=== PATIENT | female | born 1960 | race Caucasian/White ===

== ENCOUNTER 2017-07-28 14:55 | Outpatient (CLI) | payer OTHER | END 2017-07-28 14:56 | disposition home or self-care (01) | LOC: DTY/OP 14:55 | PROVIDERS: ATTEND Specialist | DX: Z01.818 Encounter for other preprocedural examination (principal); E66.01 Morbid (severe) obesity due to excess calories | CPT/HCPCS: 97802 ==

== ENCOUNTER 2017-09-22 16:22 | Outpatient (CLI) | payer BC | END 2017-09-22 16:23 | disposition home or self-care (01) | LOC: LABBT 16:22 | PROVIDERS: ATTEND Specialist | DX: Z01.818 Encounter for other preprocedural examination (principal); E66.01 Morbid (severe) obesity due to excess calories | CPT/HCPCS: 93005; 93010 ==

== ENCOUNTER 2017-09-22 17:00 | Inpatient (IN) | payer BC ==
--- NOTE | 2017-09-23 05:51 | ADD-HP ---
ADDENDUM To the dictation 08/17/2017, #[id number]. HISTORY OF PRESENT ILLNESS: A 57-year-old female presents for evaluation for a bariatric surgery. S he has undergone laparoscopic Nilesh fundoplication in 12/[address] Briones. This was performed over a bougie. She had an upper endoscopy by Dr. David that revealed mild esophagitis post-Nis sen changes and no other abnormalities. The patient has seen psychology and felt to be a good candid ate for bariatric surgery. She has seen our dietitian and office service coordinator reviewing the periop erative eating changes associated with laparoscopic sleeve gastrectomy. She is well aware of this an d aware of the importance of following this regimen to minimize risk of complications. She is well a barton of the risk of operation, which have been well outlined in previous dictations. She has no furt her questions. She has signed the consents. We have reviewed them and she has reviewed them at home and has no further questions. Plan is to take down the Nilesh fundoplication and perform a laparosc opic sleeve gastrectomy. The patient has followed our regimen and has been successful with periopera tive weight loss. When I initially saw her, she was 264 pounds, BMI of 48 and today 247 pounds, BMI of 45. She has seen Dr. Theodore Wright and had a normal myocardial perfusion scan, normal ejection fracti on and is felt to be a good candidate for bariatric surgery without significant cardiac risk. She un derstands would be successful she will need to follow the postoperative recommendations and followup and support groups and she is willing to do that. Comorbidities include hypertension, insomnia, slee p apnea and arthralgias. She has a history of depression followed by psychiatry in the past. PAST SURGICAL HISTORY: She has had a right total knee replacement in 10/2014; hysterectomy; bilatera l salpingo-oophorectomy for benign disease; right shoulder replacement; right carpal tunnel release; laparoscopic Nilesh fundoplication by Dr. Briones; colonoscopy at age 49, normal; esophagogastroduode noscopy recently without significant findings and right total shoulder replacement on 02/27/2013. ALLERGIES: PROCHLORPERAZINE and COMPAZINE. SOCIAL HISTORY: Tobacco one-half pack a day in the past and has quit smoking and does use Chantix. MEDICATIONS: Lexapro 40 mg a day, Lunesta 2 mg at bedtime, Lipitor 10 mg a day, Diovan 320/12.5 j carlos y, methylphenidate ER 36 mg twice a day, acyclovir 400 mg once a day, Chantix, Klor-Con 10 mg a day a nd Lasix 20 mg a day. PHYSICAL EXAMINATION: VITAL SIGNS: Weighs 247 pounds, blood pressure 119/69, pulse 95, temperature 93.2 degrees, height 5 foot 2 inches and a BMI of 45.2. HEENT: Unremarkable. LUNGS: Clear to auscultation. CARDIAC: Regular rate and rhythm without murmur or gallop. ABDOMEN: Soft and nontender. EXTREMITIES: Unremarkable. ASSESSMENT AND PLAN: 1. Morbid obesity with comorbidities of hypertension and sleep apnea. Well aware of the risk of rev isional bariatric surgery and consents. Understands the risk of leakage, bleeding and open operation . 2. History of tobacco abuse cessation, on Chantix. 3. Sleep apnea. 4. Hypertension. 5. Arthralgias.
--- NOTE | 2017-09-28 06:13 | HP ---
HISTORY OF PRESENT ILLNESS: The patient has attended our bariatric seminar. After hearing the baria tric options, she is interested in laparoscopic sleeve gastrectomy. She has tried different surgical weight loss without durable results. She has tried Weight Watchers, shakes and decreased carbs, Nut risystem, losing 20 to 40 pounds without durable results. She wants to lose weight for long-term res ults, health reasons, and to increase her activity and interactions with her family. She wants to gifford ve a quality of life in the future. Comorbidities include hypertension, elevated cholesterol, sleep apnea for which she does not use a CPAP and had a sleep study in 2013 at [facility]. 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 She is currently smoking, decreased to 1 pack a day to on e half pack per day, using Chantix, plans to quit smoking in the near future. She is followed by [facility] physician in [place], Dr. Aylin Torres. She in 2008 had laparoscopic hiatal hernia repai r and fundoplication and had a followup endoscopy [address] Cancino and reports this as nor mal. She does not have any reflux symptoms at all. Of interest also was the patient had some leg swelling. She had a cardiac catheterization with Dr. Nicole Wright and this was reported as normal. This workup has undertaken because of lower extremity dennis a and some chest pressure symptoms, they were unexplained. The patient had negative cardiac stress t est beginning of this year, but she wanted to have a cardiac catheterization because of her symptoms. ALLERGIES: PROCHLORPERAZINE and COMPAZINE. TOBACCO: One half pack a day, decreased from 1 pack a day, using Chantix to quit smoking. ALCOHOL: Rarely. MEDICATIONS: Lexapro 40 mg a day, Lunesta 2 mg at bedtime, Lipitor 20 mg daily, Diovan (valsartan an d hydrochlorothiazide) 320/12.5 mg daily (taken p.r.n.), methylphenidate ER 36 mg twice a day, acyclo vir 400 mg once a day, Chantix, Klor-Con 10 mEq a day, and Lasix 20 mg a day. PAST MEDICAL HISTORY: Hypertension, insomnia, lower extremity edema, depression and anxiety. PAST SURGICAL HISTORY: Left shoulder surgery in 02/2013, right total knee replacement 10/2014, hyste rectomy and BSO for benign reasons, right shoulder replacement, right carpal tunnel, laparoscopic hia chidi hernia repair and fundoplication in 2008 in [place]. Colonoscopy at age 49 and had another one i 2014 that was normal. EGD by Dr. Cancino in [place] 4 to 5 years ago. History of acute renal tram lure secondary to NSAIDs and dehydration, did not require dialysis. History of diverticulitis, treat ed as an outpatient 08/2014. SOCIAL: The patient works at [employer]. PHYSICAL EXAMINATION: VITAL SIGNS: Height 5 feet 2 inches, weight 259 pounds, 47 BMI. HEAD, EARS, EYES, NOSE AND THROAT: Unremarkable. LUNGS: Clear to auscultation. CARDIAC: Regular rate and rhythm without murmur or gallop. ABDOMEN: Obese, soft, nontender. EXTREMITIES: Unremarkable. Edema of feet and ankles. NEUROLOGIC: Intact. LYMPHATICS: No lymphadenopathy neck groins, axilla. LABORATORY DATA: Chemistries on 06/02/2017, creatinine 0.8, GFR 84, and BUN 22. Liver function test s normal. ASSESSMENT AND PLAN: 1. Morbid obesity, 5 feet 2 inches, 259 pounds, 47 body mass index. She has multiple comorbidities as listed above. She is a good candidate for sleeve gastrectomy. I have discussed the risks and maynor efits of bariatric surgery, which were well explained in the seminar and then questions were answered . Risk of infection, bleeding, reoperation was explained, concept of revisional surgery due to her p revious laparoscopic hiatal hernia repair and Nilesh fundoplication discussed. She understands these issues increased risk for revisional surgery and we will proceed on with baseline bariatric labs, ps ychology visit, dietary visit related to a sleeve gastrectomy, perioperative dietary changes as well as visiting Dr. Cancino for upper endoscopy. 2. Sleep apnea, does not use a CPAP at home. 3. Hypertension, on one medication. 4. Elevated cholesterol. 5. History of gastroesophageal reflux disease treated successfully with antireflux surgery and repai r of hiatal hernia performed in [place].
--- NOTE | 2017-09-28 06:14 | ADD-HP ---
ADDENDUM TO HISTORY AND PHYSICAL DICTATED 07/14/2017 Jazzy Bean is a 57-year-old female who has undergone a laparoscopic Nilesh fundoplication 12/[address] Briones. This was performed over a bougie. Patient is scheduled to have an upper endoscopy by Dr. David in [place]. Patient has an appointment to see Laurita douglassitian today and has an appointment with psychologist. Bariatric labs have been obtained and are normal except for a slight ly low ferritin. I have discussed with patient the fact that since she has had a Nilesh fundoplicati on performed for severe gastroesophageal reflux disease and even though this resolved her reflux, the best surgical bariatric options is for laparoscopic Pam-en-Y gastric bypass. I have drawn her figu res explained using diagrams by this is the best operation. I have explained to her the risks of ope ration including infection, bleeding, reoperation, gastric pouch ischemia, anastomotic leakage, and u nderstand these issues, questions were answered. Anatomy reviewed and she is agreeable and wishes to proceed. I have discussed with her in addition, options to be referred to another bariatric surgeon for this revisional procedure, but she has declined when stayed here understands the risks and benef its. I have explained to her in detail how a leak would be managed if she would have one, including probable/possible use of a drain perioperatively that would stay in place for a week and a half. I nilsa camposhelly explained to her that if she would have a leak, she may need staining referred to invasive gastro enterologist in [place]. She understands these issues and in addition understands that if she would have leak, she would need a feeding jejunostomy tube. Hopefully, we can avoid these issues, but this was discussed and she wishes to proceed. She has had problems with lower extremity edema, refractor y diuretic. She has been evaluated from a cardiac standpoint by Dr. Theodore Wright and had cardiac stress test, catheterization, all of which are unremarkable. She has normal renal function and the normal liver function test. She does have sleep apnea. I have stressed her the importance of weight loss p rior to surgery and she will work with Laurita herrera to achieve that. She understands the risks a nd benefits as outlined.
[2017-09-28] MEDS ORDERED: Ketorolac Tromethamine 30 MG/ML VIAL ONE (06:27)
[2017-09-28] MEDS ORDERED: Scopolamine 1.5 mg/72 hour Patch ONE (06:27)
[2017-09-28] MEDS ORDERED: Heparin 5,000 UNITS/ML VIAL ONE (06:27)
[2017-09-28] MEDS ORDERED: Fentanyl 250 MCG/5 ML VIAL ONE (06:40)
[2017-09-28] MEDS ORDERED: cefOXitin 2 GM in Syringe 10 ML SLOW IVP SCH (06:45)
[2017-09-28] MEDS ORDERED: Bupivacaine/Epinephrine 0.25% 30 ML VIAL ONE (06:51)
[2017-09-28] MEDS ORDERED: Dextrose 5% in Water 1,000 ML IV PRN (10:45)
[2017-09-28] MEDS ORDERED: diphenhydrAMINE 50 MG/ML VIAL IVP PRN (10:45)
[2017-09-28] MEDS ORDERED: Hydrocodone-Acetamin 15 ML UDCUP PO PRN (10:45)
[2017-09-28] MEDS ORDERED: hydrALAZINE 20 MG/ML VIAL SLOW IVP PRN (10:45)
[2017-09-28] MEDS ORDERED: Dextrose 50% Abboject 50 ML SYRINGE SLOW IVP PRN (10:45)
[2017-09-28] MEDS ORDERED: Ondansetron HCl/PF 4 MG/2 ML Vial IVP PRN ×3 (10:45→17:41)
[2017-09-28] MEDS ORDERED: Promethazine HCl 25 MG/ML VIAL ONE (10:55)
[2017-09-28] MEDS ORDERED: Scopolamine 1.5 mg/72 hour Patch TD SCH (11:00)
[2017-09-28] MEDS ORDERED: Promethazine HCl 25 MG/ML VIAL IM PRN (11:05)
[2017-09-28] MEDS ORDERED: Promethazine HCl 25 MG/ML VIAL SLOW IVP PRN (11:05)
[2017-09-28] MEDS ORDERED: Fentanyl 100 MCG/2 ML VIAL ONE (11:21)
[2017-09-28] MEDS ORDERED: Morphine PF 1 MG/ML SYR IVP PRN (12:01)
--- NOTE | 2017-09-28 12:15 | OP ---
DATE OF PROCEDURE: 09/28/2017 PREOPERATIVE DIAGNOSES: History of GERD and Nilesh fundoplication, hypertension, arthralgias, obstru ctive sleep apnea, morbid obesity. Initial BMI 48, 264 pounds, preoperative weight 247 pounds, BMI 4 5. POSTOPERATIVE DIAGNOSES: History of GERD and Nilesh fundoplication, hypertension, arthralgias, obstr uctive sleep apnea, morbid obesity. Initial BMI 48, 264 pounds, preoperative weight 247 pounds, BMI 45. PROCEDURE: Laparoscopic reversal Nilesh fundoplication, lysis of adhesions, Pam-en-Y gastric bypass , 100 cm Pam limb antecolic. Mesenteric defect closed from jejunojejunostomy 25 mm EEA stapler, peyton cked under water and no leaks. SURGEON: Dr. Jhon Collazo ANESTHESIA: General. ESTIMATED BLOOD LOSS: 25 mL. BLOOD TRANSFUSED: None. PROCEDURE: The patient was taken to the operating room where under general anesthesia, abdomen was p repared with ChloraPrep, draped in routine fashion. The patient was properly padded. Wilson catheter was placed at the beginning, removed at the end. Supraumbilical incision made and pneumoperitoneum to 15 mmHg obtained with the Veress needle, replacing it with a 5 port and laparoscope inserted. All ports anesthetized with 0.25% Marcaine with epinephrine 60 mL volume used. Remainder of the ports p laced under laparoscopic visualization. Bilateral far lateral subcostal incision made and [address] a[address] Bilateral midclavicular upper abdominal incision was made right and left and on the right, the 12 mm and left 15 mm ports placed. Incision made subxiphoid left and Joe liver retractor inse rted, reflecting the left lobe of liver. The patient was placed in reverse Trendelenburg. Reversal Nilesh fundoplication was undertaken first. There were some adhesions to the liver were taken down c aredestiny, identifying the right and left crura. The Nilesh fundoplication previously performed in 12 11 was noted to not be attached anteriorly and to have slipped right lateral. These adhesions of the fundus to the right of the esophagus were taken down. A #32 [place] bougie had been placed under lap aroscopic visualization down the esophagus into the stomach to facilitate the identification the esop hagus and avoid any injuries. Careful dissection freed the fundus to the right of the esophagus free ing it from the crura and stomach and then pulling the fundus carefully with laparoscopic graspers to the left side for anatomic positioning. Careful evaluation revealed complete reduction of the Nisse n fundoplication. At this point, the patient was placed back in the supine position. The bougie was removed. 25 cm from ligament of Treitz, small bowel was divided with Endo white load stapler and an other fire of the mesentery, hemostasis gained with cautery and the Pam limb was devascularized appr oximately 5-7 cm. A 150 cm Pam limb was then measured and a jejunojejunostomy formed with a single fire of the 60 cm white load DAVID endostapler. The common defects closed with 2 fires of the white lo ad DAVID stapler transversely. Mesenteric defect closed with interrupted [id number] sutures of 3- 0 Vicryl. The Pam limb was then carefully measured from the jejunojejunostomy and placed in the lef t upper quadrant, placed patient back in reverse Trendelenburg. The omentum initially was adherent t o the lower pelvis and this was taken down with laparoscopic dissection using the LigaSure. The omen tessie was then split to the left of the falciform ligament up to the transverse colon and reflected cep halad for formation of the jejunojejunostomy. At this time placed dependently and attention turned t o the stomach. Approximately 4 cm from the esophagogastric junction on the lesser curvature side, th e gastrohepatic ligament taken down and the lesser sac entered. This was visualized laparoscopically . As all instrumentation was removed from the esophagus and stomach, a blue load 60 cm stapler was f ired transversely across the stomach for formation of the gastric pouch after careful measurements an d positioning. At this point, gastrotomy was made just inferior and laterally along the greater curv ature using the LigaSure opened and the 25 mm EEA staple passed up into the gastric pouch attached to a suture threaded through the band passer, guiding the band passer up into the gastric pouch and pos itioned the band passer against the gastric pouch just anterior to initially fired gastric staple tk e. Cautery was then used to make a small opening adjacent to the band passer, which was passed and s utured grasped pulling the anvil out of the gastric pouch. At completion, the gastrostomy was then c losed with a single fire blue load DAVID Endo 60 cm stapler. A good closure was obtained and redundant gastric tissue removed and submitted. At completion of the gastric pouch staple line was then perfo rmed with a blue load DAVID 60 cm endostapler dividing the stomach to the left of the angle of His avoi ding encroachment on the gastroesophageal junction. Once this staple line was complete, the Pam cerda b was identified. After the Pam limb was identified an opening made in the devascularized antimesen teric portion of the Pam limb and 25 mm EEA stapler placed through the 15 mm port site left upper qu adrant and proper position of the Pam limb performed in a well vascularized segment and the post-adv anced out of the antimesenteric border visualized laparoscopically. This was then mated to the anvil in the gastric pouch, which were then approximated in the torque fire range and then the stapler fir ed, loosened and complete donuts removed. The devascularized segment of the Pam limb to the patient 's left of the gastrojejunostomy was then excised using a white load DAVID stapler Endo 60 cm removing this and sending it to pathology. 2-0 Vicryl sutures seromuscular placed at the gastrojejunostomy, r ight posterolateral, left posterior lateral, left anterior lateral, taking tension off the gastrojeju nostomy. Gastrojejunostomy was then checked under water with air insufflation of the gastric pouch a dministered through the gastric tube placed under laparoscopic visualization through the gastrojejuno stomy into the jejunum. Occlusion of the Pam limb just beyond the gastrojejunostomy was achieved wi th intestinal clamp and there was no leak. This was decompressed, orogastric tube removed. A portio n of the gastric remnant then was excised. Even though it looked good, we excised this because of a thinned out area from the reduction of the Nilesh fundoplication resecting this up towards the well v ascularized segment using a single fire of the DAVID blue load stapler. This was removed and submitted to Pathology. Good hemostasis noted. Irrigant evacuated. Good hemostasis noted. 15 mm port site was thoroughly irrigated and then closed with a GraNee needle 0 Vicryl [id number]-fi-ykphk suture. Pneum operitoneum and irrigant evacuated. All instruments removed and all port sites thoroughly irrigated. Skin incisions approximated with interrupted subdermal 4-0 Monocryl and DermaGlue applied.
[2017-09-28] MEDS: D5 1/2 NS w/20 mEq KCL 1,000 ML IV SCH ×3 (12:35→20:32)
[2017-09-28] MEDS: Acetaminophen 1,000 MG in Premix Bag 1 BAG IVPB SCH ×3 (12:35→23:48)
[2017-09-28] MEDS: Ketorolac Tromethamine 30 MG/ML VIAL IVP SCH ×3 (12:35→23:48)
[2017-09-28 13:00] VITALS: BMI 38.9
[2017-09-28] MEDS: Morphine 4 MG/ML VIAL SLOW IVP PRN ×3 (13:57→21:58)
[2017-09-28] MEDS ORDERED: Dexamethasone 20 MG/5 ML VIAL ONE (15:24)
[2017-09-28] MEDS ORDERED: PHENYLEPHRINE-NS 100 MCG/ML 10 ML SYRINGE ONE (15:24)
[2017-09-28] MEDS ORDERED: Propofol 200 MG/20 ML VIAL ONE (15:24)
[2017-09-28] MEDS ORDERED: Glycopyrrolate 0.2 MG/ML 5 ML SYRINGE ONE (15:24)
[2017-09-28] MEDS ORDERED: ePHEDrine/0.9% NaCl/PF SYRINGE 50 mg/10 ml ONE (15:24)
[2017-09-28] MEDS ORDERED: Ondansetron HCl/PF 4 MG/2 ML Vial ONE (15:24)
[2017-09-28] MEDS ORDERED: Lidocaine 1% PF 5 ML VIAL ONE (15:24)
[2017-09-28] MEDS ORDERED: Ondansetron ODT 4 MG TAB PO PRN (17:40)
[2017-09-28] MEDS: Metoclopramide HCl 10 MG/2 ML VIAL IVP SCH (20:32)
[2017-09-28] MEDS ORDERED: Enoxaparin Sodium 40 MG/0.4 ML SYRINGE SC SCH (21:00)
[2017-09-29] MEDS: Morphine 4 MG/ML VIAL SLOW IVP PRN (02:03)
[2017-09-29] MEDS: D5 1/2 NS w/20 mEq KCL 1,000 ML IV SCH (02:03)
[2017-09-29] MEDS: Acetaminophen 1,000 MG in Premix Bag 1 BAG IVPB SCH ×2 (05:07→11:38)
[2017-09-29] MEDS: Ketorolac Tromethamine 30 MG/ML VIAL IVP SCH ×2 (05:07→11:37)
[2017-09-29] MEDS: Metoclopramide HCl 10 MG/2 ML VIAL IVP SCH (05:07)
[2017-09-29 05:18] LABS: #Lymphocytes 1.9 thou/uL (1.20-3.40); #Neutrophils 9.5 thou/uL (1.40-6.50); %Basophils 0.2 % (0.0-1.0); %Eosinophils 0.2 % (0.0-10.0); %Lymphocytes 15.4 % (21.0-51.0); %Monocytes 8.3 % (0.0-10.0); Hematocrit 39.3 % (36.0-47.0); Mean Platelet Volume 8.3 fL (7.4-10.4); Red Blood Cell (RBC) Count 4.18 mill/uL (4.20-5.40); White Blood Cell (WBC) Count 12.6 thou/uL (4.8-10.8)
[2017-09-29 05:36] LABS: Anion Gap 9 mmol/L (10-20); BUN (Urea Nitrogen) 11 mg/dL (9.8-20.1); Calc. Creatinine Clearance 153 mL/min (70-130); Calcium 8.7 mg/dL (7.8-10.44); Carbon Dioxide 26 mmol/L (22-29); Chloride 104 mmol/L (98-107); Estimated GFR-MDRD Greater than 90
[2017-09-29] MEDS ORDERED: Ondansetron ODT 8 MG TAB SL PRN (08:21)
[2017-09-29 08:50] VITALS: TEMP 98.1
[2017-09-29] MEDS ORDERED: Pantoprazole 40 MG VIAL IVP SCH (09:00)
--- NOTE | 2017-09-29 10:05 | RAD ---
SINGLE CONTRAST UPPER GI: HISTORY: Status post bariatric surgery, gastric bypass. FINDINGS: The patient swallowed 15 cc of Gastrografin orally in the upright position. Contrast media passed th rough the distal esophagus into the postoperative stomach and into the jejunum. No evidence for obst ruction or extravasation. IMPRESSION: Unremarkable post gastric bypass upper GI. POS: CORINE
[2017-09-29] MEDS ORDERED: Iopamidol 300 61% 30 ML VIAL ONE (11:39)
--- NOTE | 2017-09-29 17:48 | PRG ---
DATE OF SERVICE: 09/29/2017 SUBJECTIVE: Jazzy Bean is seen today. Postoperative yesterday laparoscopic reversal, Nilesh fundop lication, Adhesiolysis Pam-en-Y gastric bypass, 150 cm Pam limb and antecolic. Mesenteric defect c losed. Jejunojejunostomy 25 mm EEA stapler checked under water without leaks. DIAGNOSES: History of gastroesophageal reflux disease, Nilesh fundoplication, hypertension, arthralg ias, previous sleep apnea, morbid obesity, initial BMI 48, 264 pounds. Preoperative weight just prio r to this operation, 247 pounds, 45 BMI, history of tobacco use. HISTORY: A 57-year-old female who presented attended our bariatric seminar, visited our dietitian for preoperative evaluation in preparation for Pam-en-Y gastric bypass. In 2000, [facility]. Briones in [facility]. She had a Nilesh fundoplication for severe reflux. This has controlled her reflux well without p roblems. She was counseled as to tobacco cessation and she states she had quit smoking preoperativel y, on the morning of surgery, while in the operating room, nurses informed me that the patient was st ill smoking according to her daughter. Postoperatively, the patient was instructed to not smoke as s moking can increase the risk of gastrojejunal anastomotic ulcerations, strictures, perforation and bl eeding and necessitated reoperation in addition to other negative smoking effects. The patient state s that her smokes, but only because she does and that she will make a genuine effort to quit smoking. This discussion was held in front of her daughter and . The patient underwent the a noni described operation and postoperatively did well and medially had nausea problems, in the evenin g of surgery, resolving the day and she mobilized ambulated well. She had a normal post-bariatric love rgery, swallow study and tolerated liquids and discharged home to resume her home medications as well as hydrocodone 7.5/325, elixir 200 mL, 15 mL q.i.d. as needed, and [id number] Tylenol elixir a s needed. She will take her bariatric vitamins and protein supplements as instructed and follow post Pam-en-Y gastric bypass, bariatric progressive diet as instructed. Questions answered.
[2017-09-29 21:52] VITALS: BP 97/66
== END 2017-09-29 13:41 | disposition home or self-care (01) | DRG 621 ==
LOC: SURG A 09-28 06:05 → SURG B 09-28 12:14
PROVIDERS: ADMIT Specialist; ATTEND Specialist
PROC: 0D164ZA Bypass Stomach to Jejunum, Percutaneous Endoscopic Approach (ICD-10-PCS; principal; 2017-09-28)
PROC: 0DQ44ZZ Repair Esophagogastric Junction, Percutaneous Endoscopic Approach (ICD-10-PCS; 2017-09-28)
PROC: 0DHA3UZ Insertion of Feeding Device into Jejunum, Percutaneous Approach (ICD-10-PCS; 2017-09-28)
DX: E66.01 Morbid (severe) obesity due to excess calories (principal); I10 Essential (primary) hypertension; K20.9 Esophagitis, unspecified; G47.33 Obstructive sleep apnea (adult) (pediatric); E78.00 Pure hypercholesterolemia, unspecified; M25.50 Pain in unspecified joint; F17.210 Nicotine dependence, cigarettes, uncomplicated; Z68.42 Body mass index [BMI] 45.0-49.9, adult; Z88.8 Allergy status to other drugs, medicaments and biological substances; Z96.651 Presence of right artificial knee joint; Z96.611 Presence of right artificial shoulder joint; Z85.828 Personal history of other malignant neoplasm of skin; Z82.49 Family history of ischemic heart disease and other diseases of the circulatory system; Z82.3 Family history of stroke
CPT/HCPCS: 36415; 74241; 80048; 85025; 88307; 88312; 94760; C9113; J0131; J0694; J1100; J1644; J1650; J1885; J2001; J2270; J2405; J2550; J2704; J2765; J3010

== ENCOUNTER 2017-10-05 12:03 | Inpatient (IN) | payer BC ==
[2017-10-05 12:56] LABS: #Eosinphils 0.3 thou/uL (0.0-0.7); #Lymphocytes 1.5 thou/uL (1.20-3.40); #Monocytes 0.6 thou/uL (0.11-0.59); #Neutrophils 4.1 thou/uL (1.40-6.50); %Basophils 0.5 % (0.0-1.0); %Eosinophils 3.9 % (0.0-10.0); %Monocytes 8.6 % (0.0-10.0); Hematocrit 38.8 % (36.0-47.0); Mean Platelet Volume 7.1 fL (7.4-10.4); Red Blood Cell (RBC) Count 4.12 mill/uL (4.20-5.40); White Blood Cell (WBC) Count 6.4 thou/uL (4.8-10.8)
[2017-10-05] MEDS ORDERED: Enoxaparin Sodium 40 MG/0.4 ML SYRINGE SC SCH (13:00)
[2017-10-05] MEDS ORDERED: Ondansetron ODT 8 MG TAB PO PRN (13:01)
[2017-10-05] MEDS ORDERED: Metoclopramide HCl 10 MG/2 ML VIAL IVP PRN (13:01)
[2017-10-05] MEDS ORDERED: Ondansetron HCl/PF 4 MG/2 ML Vial IVP PRN ×2 (13:01→20:39)
[2017-10-05] MEDS ORDERED: Ondansetron ODT 4 MG TAB PO PRN (13:01)
[2017-10-05] MEDS ORDERED: Ondansetron ORAL SOLN. 4 MG/5 ML UDCUP PO PRN ×2 (13:01)
[2017-10-05] MEDS ORDERED: Ondansetron ODT 8 MG TAB SL PRN (13:01)
[2017-10-05] MEDS ORDERED: Lactated Ringer's 1,000 ML IV SCH (13:15)
[2017-10-05] MEDS ORDERED: Ondansetron HCl/PF 4 MG/2 ML Vial IVP SCH (13:15)
[2017-10-05 13:23] LABS: ALT (SGPT) 16 U/L (8-55); AST (SGOT) 17 U/L (5-34); Alkaline Phosphatase 85 U/L (40-150); Anion Gap 11 mmol/L (10-20); BUN (Urea Nitrogen) 8 mg/dL (9.8-20.1); Bilirubin, Total 0.3 mg/dL (0.2-1.2); Calc. Creatinine Clearance 0 mL/min (70-130); Calcium 9.2 mg/dL (7.8-10.44); Carbon Dioxide 27 mmol/L (22-29); Chloride 104 mmol/L (98-107); Estimated GFR-MDRD 82; Globulin 2.8 g/dL (2.4-3.5); Protein, Total 6.4 g/dL (6.0-8.3)
[2017-10-05] MEDS ORDERED: Metoclopramide HCl 10 MG/2 ML VIAL IVP SCH (13:30)
[2017-10-05] MEDS ORDERED: Iopamidol 370 76% 50 ML VIAL FS ONE (13:55)
[2017-10-05] MEDS ORDERED: ISOVUE-370 76%-LOCM 1 ML ONE (13:55)
[2017-10-05] MEDS ORDERED: Dexamethasone 20 MG/5 ML VIAL ONE (14:22)
[2017-10-05] MEDS ORDERED: Ketorolac Tromethamine 30 MG/ML VIAL ONE (14:22)
[2017-10-05] MEDS ORDERED: Succinylcholine Chloride 20 MG/ML 10 ml SYRINGE FS ONE (14:22)
[2017-10-05] MEDS ORDERED: Lidocaine 1% PF 5 ML VIAL ONE (14:22)
[2017-10-05] MEDS ORDERED: Glycopyrrolate 0.2 MG/ML 5 ML SYRINGE ONE (14:22)
[2017-10-05] MEDS ORDERED: Ondansetron HCl/PF 4 MG/2 ML Vial ONE (14:22)
[2017-10-05] MEDS ORDERED: Propofol 200 MG/20 ML VIAL ONE (14:22)
--- NOTE | 2017-10-05 14:35 | HP ---
HISTORY OF PRESENT ILLNESS: Jazzy Bean is a 57-year-old female who presented with desiring bariatri c surgery. She had had in 2000 laparoscopic Nilesh fundoplication for intractable reflux. After goi ng through our bariatric program seminar meeting with our dietitian and establishing baseline labs, s he underwent on 09/28/2017 laparoscopic reversal Nilesh fundoplication, lysis of adhesions, Pam-en-Y gastric bypass, 150 cm Pam limb. Mesenteric defect closed from the jejunojejunostomy 25 mm EEA sta pler, checked under water with no leaks. The patient did well postoperatively and discharged home th e next day. The patient is from [place]. I saw her in the office yesterday 10/04/2017. She r eported some fullness in her upper abdomen, but otherwise she is doing well. She was concerned that she is not losing weight, but she did have some edematous lower extremities and she was asked to resu me her diuretic. Her exam was unremarkable. Abdomen soft. Wounds healed. She is swallowing well, tolerated her diet. There is no history of reflux. Bowel function was normal. The patient called t jean pierre stating that she at midnight began having vomiting. She was brought to the office. The patient is dehydrated. She, however, does not have any abdominal pain. Her abdomen is soft, nontender with good bowel sounds. Plan is admit to the hospital for hydration, obtain baseline laboratories and ma y consider upper abdomen contrast study later today after laboratories and initial radiological imagi ng to rule out any leak, although clinically this is unexpected based on her current status. Patient 's starting weight was 264 pounds, BMI 48 yesterday in the office 264 pounds, BMI 48. ALLERGIES: PRO-CLEAR, PERAZINE, and COMPAZINE. SOCIAL HISTORY: Tobacco abuse in the past, cessation preoperatively. She has been using Chantix. MEDICATIONS: Lexapro 40 mg daily, niacin 200 mg at bedtime, Lipitor 10 mg a day, Diovan 320/12.5 mg daily, methylphenidate ER 36 mg twice a day, acyclovir 400 mg once a day, Chantix as needed, Klor-Con 10 mg a day, and Lasix 20 mg a day. PAST SURGICAL HISTORY: Right total knee replacement in October 2014, hysterectomy, bilateral salping o-oophorectomy for benign disease, right shoulder replacement, right carpal tunnel syndrome, laparosc opic Nilesh fundoplication by Dr. Briones in 2000, colonoscopy at age 49, normal upper endoscopy rece ntly with post-Nilesh fundoplication. FINDINGS: Right total shoulder replacement on 02/27/2013. PAST MEDICAL HISTORY: History of reflux, history of hypertension, insomnia, hip pain, sleep apnea, e xtremity edema. The patient has seen Dr. Theodore Wright preoperatively and had a normal myocardial perfus ion scan, normal ejection fraction and is felt to be a good candidate for bariatric surgery preoperat ively without significant cardiac risk. PHYSICAL EXAMINATION: VITAL SIGNS: Blood pressure 148/89, heart rate 79 and 241 pounds. HEENT: Unremarkable. Oropharynx is dry. LUNGS: Clear to auscultation. CARDIAC: Regular rate and rhythm without murmur or gallop. ABDOMEN: Soft. Surgical wounds well healed, nontender. Bowel sounds present. EXTREMITIES: Unremarkable. ASSESSMENT AND PLAN: Nausea and vomiting post-bariatric surgery. She has 7 days postoperatively. W shelly will admit to the hospital for IV fluid hydration and check her labs and check her x-rays and make further recommendations based on clinical course.
--- NOTE | 2017-10-05 15:22 | RAD ---
ABDOMINAL SERIES WITH UPRIGHT CHEST AND TWO VIEW ABDOMEN: History: Vomiting post bariatric surgery. FINDINGS: The lungs appear clear. Supine and upright views of the abdomen reveal gas filled dilated loops of small bowel in the left ab domen. Findings are concerning for small bowel obstruction. Consider further evaluation with small deepali wel exam or CT abdomen. IMPRESSION: Gas filled dilated loops of small bowel in the left abdomen. POS: CORINE
[2017-10-05 16:02] VITALS: BMI 43.9
[2017-10-05] MEDS: Lactated Ringer's 1,000 ML IV SCH ×2 (16:48→21:44)
[2017-10-05] MEDS ORDERED: Bupivacaine/Epinephrine 0.25% 30 ML VIAL ONE (17:53)
[2017-10-05] MEDS ORDERED: Meropenem 2 GM, Admixture Fee 1 EACH in Sodium Chloride 0.9% 100 ML IVPB SCH ×6 (18:00)
--- NOTE | 2017-10-05 18:06 | CT ---
CONTRAST ENHANCED CT IMAGES ABDOMEN AND PELVIS: 10/05/17 HISTORY: Patient with recent gastric sleeve seven days ago with nausea and vomiting. Contrast enhanced CT images of the abdomen and pelvis is obtained. IV and oral contrast is given. The lung bases are unremarkable. No evidence of free intraperitoneal air is seen. The liver contains a hypodense area most compatible with a hepatic cyst. The spleen is unremarkable. The gallbladder is unremarkable. Surgical pepe seen in the stomach. Anterior abdominal wall postoperative changes and gas is present. There is marked small bowel dilatation. There is an area where there is abrupt caliber change at the surgical anastomosis of the small bowel in the left mid abdomen seen on images #23 through 30 on the axial images and coronal images #73 through 83. Proximal to this, the small bowel is dilated while di stal to it small bowel has normal caliber. Small amount of free pelvic fluid is present. Extensive descending and sigmoid colonic diverticulosis is also present. IMPRESSION: Area of small bowel dilatation at the surgical anastomosis of the small bowel with proximal dilatatio n at the staple line. POS: [facility]
[2017-10-05] MEDS ORDERED: Fentanyl 250 MCG/5 ML VIAL ONE (18:26)
[2017-10-05] MEDS ORDERED: Promethazine HCl 25 MG/ML VIAL SLOW IVP PRN (20:39)
[2017-10-05] MEDS ORDERED: Promethazine HCl 25 MG/ML VIAL IM PRN (20:39)
[2017-10-05] MEDS ORDERED: Fentanyl 100 MCG/2 ML VIAL ONE ×2 (20:40→20:59)
[2017-10-05] MEDS ORDERED: Promethazine HCl 25 MG/ML VIAL ONE (20:44)
--- NOTE | 2017-10-05 20:59 | PRG ---
DATE OF SERVICE: 10/05/2017 SUBJECTIVE: Ms. Bean was seen earlier today and her abdominal x-ray suggested proximal bowel obstru ction with nausea and vomiting and a CAT scan was ordered and revealed Pam limb dilatation. Gastric remnant and biliary duodenal limb was not dilated. With this finding, laparoscopy was recommended e lewis though her CBC, vital signs, basic comprehensive metabolic profile were normal. I discussed this with the patient's family and the patient and agreeable and we will proceed with laparoscopic and pr ocedure as indicated.
[2017-10-05] MEDS ORDERED: Acetaminophen 1,000 MG in Premix Bag 1 BAG IVPB PRN (21:27)
[2017-10-06] MEDS: Ketorolac Tromethamine 30 MG/ML VIAL IVP SCH ×4 (00:07→17:55)
[2017-10-06] MEDS: Acetaminophen 1,000 MG in Premix Bag 1 BAG IVPB SCH ×2 (00:10→06:12)
--- NOTE | 2017-10-06 01:22 | OP ---
DATE OF PROCEDURE: 10/05/2017 PREOPERATIVE DIAGNOSIS: Seven days' status post Pam-en-Y gastric bypass with 36 hours onset of abdo shilpa fullness and CAT scan suggesting a Pam limb distention and a proximal obstruction. POSTOPERATIVE DIAGNOSIS: 1. Seven days' status post Pam-en-Y gastric bypass with 36 hours onset of abdominal fullness and CA T scan suggesting a Pam limb distention and a proximal obstruction. 2. Partial obstruction near the jejunojejunostomy without dilatation of the biliary limb with relati ve decompression of the common limb. PROCEDURE: Diagnostic laparoscopy, jejunojejunostomy between the Pam limb and the common limb just beyond the previous jejunojejunostomy. SURGEON: Jhon Collazo M.D. METAL SASH SETTER: Johnie Camarena M.D. ANESTHESIA: General. Local 0.25% Marcaine with epinephrine, 30 mL DESCRIPTION OF PROCEDURE: The patient was taken to the operating room where under general anesthesia , abdomen was prepared with ChloraPrep, draped in routine fashion. Local anesthetic infiltrated into skin and subcutaneous tissue about all port sites. Left lateral subcostal incision made through an old 5 mm port site and Veress needle used to establish pneumoperitoneum to 15 mmHg, replacing it with a 5 port and video laparoscope inserted. Remaining ports placed under laparoscopic visualization. A left lateral incision made and a 12 port placed. Left lower quadrant incision made laterally and a 5 port placed and later infraumbilical midline incision made and a 5 port placed. The laparoscopic evaluation revealed the Pam limb was slightly dilated relative to the common limb. The biliary limb was not dilated. I traced the Pam limb from the gastrojejunostomy to the jejunojejunostomy and the re seemed to be a slight torsion or kink, although as I laid it out laparoscopically, there was not a complete obstruction. However, the Pam limb was relatively dilated to the distal limb and it was f elt that there was a partial obstruction here. It appeared as though the staple closure of the jejun ojejunostomy was slightly more longitudinal than transverse and whether this caused this pseudoobstru ction is speculation. The common limb was run from the jejunojejunostomy to the ileum and there was no obstruction. At this point, I asked Dr. Camarena to assist me to lend a second opinion and he agre ed and decision was made to create a jejunojejunostomy between the Pam limb and the common limb to r elieve this pseudo-obstruction. This was performed with a 60 cm white load stapler inserted and a sm all enterostomy created with the hook cautery cutting current inserting the stapler and firing it ant imesenteric creating the anastomosis and the common defect closed transversely with 2 fires of the wh ite load DAVID stapler. To prevent narrowing before completing the staple line, two 3-0 Vicryl sutures were placed to grasp the corners and holding up to minimize incorporating too much jejunum in the co mmon enterostomy closure. Once this was complete, anti-kinking suture of 3-0 Vicryl placed laparosco pically between the common and Pam limb for orientation and then, the common limb laparoscopically p laced dependently inferiorly. Anastomosis was inspected with irrigation. Good hemostasis noted. A 12 mm port closed with a GraNee needle 0 Vicryl suture. This was done under laparoscopic visualizati on. Pneumoperitoneum reduced. Irrigant reduced. All instruments removed and all skin incisions cielo roximated with interrupted subdermal 4-0 Monocryl and DermaGlue applied.
[2017-10-06] MEDS: Morphine 4 MG/ML VIAL SLOW IVP PRN ×2 (02:15→04:26)
[2017-10-06 06:03] LABS: #Lymphocytes 0.6 thou/uL (1.20-3.40); #Monocytes 0.4 thou/uL (0.11-0.59); #Neutrophils 4.8 thou/uL (1.40-6.50); %Basophils 0.1 % (0.0-1.0); %Eosinophils 0.2 % (0.0-10.0); %Lymphocytes 10.7 % (21.0-51.0); %Monocytes 6.6 % (0.0-10.0); Hematocrit 44.6 % (36.0-47.0); Red Blood Cell (RBC) Count 4.68 mill/uL (4.20-5.40); White Blood Cell (WBC) Count 5.9 thou/uL (4.8-10.8)
[2017-10-06] MEDS: Lactated Ringer's 1,000 ML IV SCH (06:13)
[2017-10-06 06:20] LABS: Anion Gap 15 mmol/L (10-20); BUN (Urea Nitrogen) 9 mg/dL (9.8-20.1); Calc. Creatinine Clearance 130 mL/min (70-130); Carbon Dioxide 24 mmol/L (22-29); Chloride 104 mmol/L (98-107); Estimated GFR-MDRD 73; Lipase 7 U/L (8-78)
[2017-10-06] MEDS: Hydrocodone-Acetamin 15 ML UDCUP PO PRN ×2 (08:30→18:51)
[2017-10-06] MEDS: Enoxaparin Sodium 40 MG/0.4 ML SYRINGE SC SCH (08:34)
[2017-10-06] MEDS: Pantoprazole 40 MG VIAL IVP SCH (08:42)
--- NOTE | 2017-10-06 11:47 | PRG ---
DATE OF SERVICE: 10/06/2017 SUBJECTIVE: Ms. Bean is doing well today. She denies any nausea. She has not been out of bed walk ing. I helped her up this morning to sit on the side of the bed and her nurse will help to the bathr oom. The patient feels much better in that she does not have nausea. PHYSICAL EXAMINATION: VITAL SIGNS: Temperature 99.1 degrees, heart rate 101, respiration rate 14, 129/81. LABORATORY: This morning reveal white count is 5, hemoglobin 14. Basic metabolic profile was unrema rkable. Amylase and lipase are normal. LUNGS: Clear to auscultation. CARDIAC: Regular rate and rhythm without murmur or gallop. ABDOMEN: Soft, bowel sounds present, nontender. For the most part, postoperative tenderness in her left abdomen consistent with laparoscopy incisions. Patient has advanced to clear liquids and will g o slow. We will observe her today, possibly being discharged later today or tomorrow. Overall, she seems to be doing well so far. We will check her later today to see if she is ready to go home later this nimo raymundo, but more than likely she will be here until tomorrow.
[2017-10-06] MEDS ORDERED: Furosemide 40 MG/4 ML VIAL SLOW IVP SCH (12:15)
[2017-10-07] MEDS: Ketorolac Tromethamine 30 MG/ML VIAL IVP SCH ×3 (00:34→13:00)
[2017-10-07] MEDS: Hydrocodone-Acetamin 15 ML UDCUP PO PRN ×3 (00:46→16:31)
[2017-10-07 05:16] LABS: Anion Gap 10 mmol/L (10-20); BUN (Urea Nitrogen) 17 mg/dL (9.8-20.1); Calc. Creatinine Clearance 146 mL/min (70-130); Carbon Dioxide 26 mmol/L (22-29); Chloride 104 mmol/L (98-107); Estimated GFR-MDRD 83
[2017-10-07 06:08] LABS: Band 9 % (5-11); Hematocrit 31.7 % (36.0-47.0); Mean Platelet Volume 7.5 fL (7.4-10.4); Neutrophil 66 % (42-75); Reactive Lymphocytes 1 % (0-10); Red Blood Cell (RBC) Count 3.36 mill/uL (4.20-5.40); White Blood Cell (WBC) Count 9.2 thou/uL (4.8-10.8)
[2017-10-07] MEDS: Enoxaparin Sodium 40 MG/0.4 ML SYRINGE SC SCH (08:53)
[2017-10-07] MEDS: Pantoprazole 40 MG VIAL IVP SCH (08:53)
--- NOTE | 2017-10-07 10:02 | RAD ---
TWO VIEW ABDOMEN: TECHNIQUE: Supine and upright views obtained. HISTORY: Partial bowel obstruction. FINDINGS: No evidence of free intraperitoneal air. There is scattered stool and gas seen throughout the colon. There is some scattered small bowel gas; however, no evidence of small bowel dilatation or small deepali wel obstruction identified on this study. IMPRESSION: Unremarkable bowel gas pattern. POS: [facility]
[2017-10-07 16:25] VITALS: BP 113/74; TEMP 98.7
--- NOTE | 2017-10-07 17:39 | PRG ---
DATE OF SERVICE: 10/07/2017 SUBJECTIVE: Ms. Bean is doing well today. She has tolerated her diet. She has not had any nausea or vomiting. She wants to go home. Abdominal x-rays are nonspecific this morning. OBJECTIVE: VITAL SIGNS: 98.3 degrees, 98, 102/72. LUNGS: Clear to auscultation. CARDIAC: Regular rate and rhythm without murmur or gallop. ABDOMEN: Soft, nontender. Surgical wounds look good. LABORATORY DATA: White count 9 this morning, hemoglobin 10.8. Basic metabolic profile was unremarka ble. BUN 17, creatinine 0.72 and, CO2 of 26. ASSESSMENT AND PLAN: Doing well postoperative operative period. Resume bariatric full liquid diet a nd progress as previously instructed. Lortab elixir prescription given 200 mL, 15 mL p.o. q.i.d. p.r .n. and Laurita herrera has reviewed with her, her dietary progress as well as her vitamins and prot eins. Adrienne Iglesias, RN also spoke with her several times and answered questions. The patient daren l follow up with me in 2-3 weeks.
--- NOTE | 2017-10-07 17:49 | DIS ---
DATE OF ADMISSION: 10/05/2017 DATE OF DISCHARGE: 10/07/2017 DISCHARGE DIAGNOSES: Status post laparoscopic takedown of Nilesh fundoplication and conversion to Ro ux-en-Y gastric bypass 150 cm Pam limb antecolic 25 mm EEA stapler. She has been doing well until 2 -3 days prior to this admission when she reports abdominal fullness. She called my office reporting nausea and vomiting, onset at midnight and she was seen in the office, directly admitted to the [facility]. Plain abdominal x-rays suggested dilated upper small bowel loops and with nausea, vomiting, obs truction was considered and CT scan of abdomen and pelvis. Oral IV contrast given, she could not fidelia erate the oral contrast. This revealed dilated Pam limb with otherwise normal findings. No evidenc e of leak. Vital signs remained stable. White count was normal. Abdomen was soft. Considering the se findings, patient was taken to the operating room for laparoscopy. Findings at laparoscopy were t hat the Pam limb at the just proximal to jejunojejunostomy had a pseudo-obstruction as it seemed to twist and kink. Once it was brought back or around it seemed to be patent. There was no evidence of any inflammatory changes or inflammatory fluid. There were no changes to suggest a leak. Patient a t that operation laparoscopically underwent jejunojejunostomy anastomosis with a 60 mm DAVID white load stapler. Postoperatively, the patient did well resuming her diet without nausea and vomiting. We d ischarged home with Lortab elixirs 7.5, 200 mL, 15 mL q.i.d. p.r.n., encouraged to take Tylenol elixi r as able for more minimal pain. Activity encouraged. Laurita dietitian reviewed bariatric full li quid diet. Vitamin replacement protein supplements. She will follow up with Laurita in about 6 wee ks and see me in the office in 2-3 weeks. She will advance her diet per protocol. She will take pro tein supplements as instructed. She will resume her home medications. She will avoid NSAIDs.
== END 2017-10-07 18:00 | disposition home or self-care (01) | DRG 330 ==
LOC: SURG A 12:03
PROVIDERS: ADMIT Specialist; ATTEND Specialist
PROC: 0D1A4ZA Bypass Jejunum to Jejunum, Percutaneous Endoscopic Approach (ICD-10-PCS; principal; 2017-10-05)
DX: K91.31 Postprocedural partial intestinal obstruction (principal); Z68.42 Body mass index [BMI] 45.0-49.9, adult; I10 Essential (primary) hypertension; K95.89 Other complications of other bariatric procedure; Z98.84 Bariatric surgery status; E86.0 Dehydration; E66.01 Morbid (severe) obesity due to excess calories; Z88.8 Allergy status to other drugs, medicaments and biological substances; Z87.891 Personal history of nicotine dependence; Z96.651 Presence of right artificial knee joint; Z96.611 Presence of right artificial shoulder joint; G47.00 Insomnia, unspecified; G47.30 Sleep apnea, unspecified; R60.0 Localized edema
CPT/HCPCS: 36415; 74020; 74022; 74177; 80048; 80053; 82150; 83690; 85025; C9113; J0131; J1100; J1650; J1885; J1940; J2001; J2185; J2270; J2405; J2550; J2704; J2765; J3010; J7050

== ENCOUNTER 2017-10-10 00:58 | Inpatient (IN) | payer BC ==
[2017-10-10 01:42] LABS: #Eosinphils 0.6 thou/uL (0.0-0.7); #Lymphocytes 1.3 thou/uL (1.20-3.40); #Monocytes 0.7 thou/uL (0.11-0.59); #Neutrophils 4.6 thou/uL (1.40-6.50); %Basophils 0.6 % (0.0-1.0); %Eosinophils 8.4 % (0.0-10.0); %Lymphocytes 18.4 % (21.0-51.0); %Monocytes 9.8 % (0.0-10.0); Hematocrit 37.7 % (36.0-47.0); Red Blood Cell (RBC) Count 3.96 mill/uL (4.20-5.40); White Blood Cell (WBC) Count 7.3 thou/uL (4.8-10.8)
[2017-10-10 02:39] LABS: PTT 32.1 SEC (22.9-36.1)
[2017-10-10 02:40] LABS: Prothrombin Time 14.2 SEC (12.0-14.7)
[2017-10-10 02:52] LABS: Lactic Acid - Sepsis 1.4 mmol/L (0.5-2.2)
[2017-10-10 02:58] LABS: ALT (SGPT) 13 U/L (8-55); AST (SGOT) 14 U/L (5-34); Alkaline Phosphatase 100 U/L (40-150); Anion Gap 13 mmol/L (10-20); BUN (Urea Nitrogen) 6 mg/dL (9.8-20.1); Bilirubin, Total 0.3 mg/dL (0.2-1.2); CK (CPK) 42 U/L (29-168); Calc. Creatinine Clearance 0 mL/min (70-130); Calcium 9.2 mg/dL (7.8-10.44); Carbon Dioxide 28 mmol/L (22-29); Chloride 101 mmol/L (98-107); Estimated GFR-MDRD Greater than 90; Globulin 3.1 g/dL (2.4-3.5); Protein, Total 6.3 g/dL (6.0-8.3)
[2017-10-10 03:01] LABS: Troponin I Less than 0.010 ng/mL (< 0.028)
[2017-10-10] MEDS ORDERED: Morphine 4 MG/ML VIAL ONE (04:47)
[2017-10-10] MEDS ORDERED: Potassium Chloride 20 MEQ/100 ML PREMIX BAG ONE (06:50)
[2017-10-10] MEDS ORDERED: Potassium Chloride 20 MEQ TAB ONE (06:51)
[2017-10-10 07:16] LABS: Bilirubin Small (Negative); Blood, Urine Negative (Negative); Glucose, Urine (Dipstick) Negative (Negative); Ketone, Urine Trace mg/dL (Negative); Nitrite Negative (Negative); Protein, Urine (Dipstick) 30 mg/dL (Neg-Trace)
[2017-10-10 07:19] LABS: Bacteria/HPF None Seen HPF (None Seen); Hyaline Casts/LPF 7-10 HYALINE CAST LPF (0-3 Hyaline)
[2017-10-10] MEDS ORDERED: Ondansetron ODT 4 MG TAB PO PRN (07:35)
[2017-10-10] MEDS ORDERED: Ondansetron HCl/PF 4 MG/2 ML Vial IVP PRN (07:35)
[2017-10-10] MEDS ORDERED: Morphine 4 MG/ML VIAL SLOW IVP PRN ×2 (07:35)
[2017-10-10] MEDS ORDERED: hydrALAZINE 20 MG/ML VIAL SLOW IVP PRN (07:35)
--- NOTE | 2017-10-10 07:35 | RAD ---
1 VIEW CHEST: Date: 10/10/17 COMPARISON: 01/11/15. HISTORY: Dyspnea. FINDINGS: Portable upright chest demonstrates a normal cardiac silhouette. Lungs and pleural spaces are clear. No pneumothorax or osseous abnormalities. IMPRESSION: No acute cardiopulmonary process. POS: [facility]
[2017-10-10 07:53] LABS: Renal Epithelial None Seen HPF (0-3); Transitional Epithelial NONE SEEN HPF (0-3); Yeast-All Forms 1+ HPF (None Seen)
[2017-10-10 07:54] LABS: RBC/HPF 0-3 HPF (0-3)
--- NOTE | 2017-10-10 09:02 | HP ---
HISTORY OF PRESENT ILLNESS: Jazzy Bean is a 57-year-old female patient who has undergone a recent l aparoscopic reversal of her Nilesh fundoplication and gastric bypass 09/28/2017. Postoperatively, edvin bravo did well, had a swallow the next morning and tolerated her liquids and was discharged home. She se emed to do well for the first 4-5 days, but then experienced problems where she had intractable nause a. She was brought into the hospital and underwent a plain abdominal x-rays suggesting distended upp er abdominal bowel loops and a CAT scan demonstrating distended Pam limb and underwent 10/05/2017 la paroscopic evaluation of her gastric bypass, revealing a pseudo-obstruction of the Pam limb. She un derwent jejunojejunostomy to resolve this. On 10/05/2017 laparoscopic evaluation otherwise unremarkable. She was discharged home on 10/07/2017 doing well. On 10/08/2017, the family called me stating that she had a fever to 101 degree s. She had a cough and congestion her daughter reported her respiratory function sounded compromised , perhaps wheezing. She has a history of tobacco abuse and has not smoked in several weeks. She was reported as tolerating her diet, having normal bowel function not have any nausea or vomiting. Abdo shilpa pain was unchanged from surgery, not getting worse and in fact getting better. I talked with sahara duong yesterday, Tuesday10/09/2017 and she seemed to be doing well with fever diminishing. Augmentin 6 00 mg b.i.d. elixir had been called in on the . I was to see her in my office this morning, 10/10/2017, but her fevers and respiratory status seemed to worsen and she presented to the emerge ncy room. In the emergency room she was evaluated with a chest x-ray that seemed to be normal. CT a ngio appeared to be normal. Her white count was 7.3, hemoglobin 12.4. Basic metabolic pole profile was unremarkable. Lactic acid 1.4. Her vital signs were 119/97, 94 heart rate, 95% on room air. Pa in was rated as 0/8 during her stay. Temperature was 99.2 degrees. The patient after discussion wit nilsa De Santiago, the patient is undergoing CT scan abdomen and pelvis to be scanned at 0800, consuming o ral contrast at this time. ALLERGIES: CHLORPERAINE. TOBACCO: Tobacco use in the past, none for approximately 2 weeks. She had been using Chantix in the past, currently not. MEDICATIONS: Lexapro 40 mg a day, niacin 200 mg at bedtime, Lipitor 10 mg a day, Diovan 320/12.5 malathi ly, methylphenidate ER 36 mg twice a day, acyclovir 400 mg once a day, Chantix as needed, although sh shelly has not been taking this, Klor-Con 10 mg a day, Lasix 20 mg a day. She has held this recently. PAST SURGICAL HISTORY: Right total knee replacement October 2014, hysterectomy, bilateral salpingo-o ophorectomy for benign disease, right shoulder replacement, right carpal tunnel syndrome, laparoscopi c Nilesh fundoplication by Dr. Briones in 2000, colonoscopy at age 49, a normal upper endoscopy recen tly with post-Nilesh fundoplication changes. Bariatric surgery and revisional surgery dates noted ab . Right total shoulder replacement 02/27/2013. PAST MEDICAL HISTORY: History reflux resolved with Nilesh fundoplication, hypertension, insomnia, hi p pain, sleep apnea, extremity edema. She has been evaluated preoperatively by Dr. Theodore Wright and had a normal myocardial perfusion scan, normal cardiac ejection fraction. PHYSICAL EXAMINATION: GENERAL: The patient is calm and not anxious. She appears in no acute distress. VITAL SIGNS: Blood pressure 119/97, 94, 19, 98.9 degrees. LUNGS: Clear to auscultation. CARDIAC: Regular rate and rhythm without murmur or gallop. ABDOMEN: Soft. Bowel sounds present. Laparoscopic incisions are well healed. Mild tenderness in h er abdomen without peritoneal signs. EXTREMITIES: Unremarkable. LABORATORY: Basic metabolic profile was normal. White count 7, hemoglobin 12. Throat screen negati ve. Evaluation of her oropharynx reveals some inflammatory changes in her pharynx. ASSESSMENT AND PLAN: 1. Postoperative bariatric surgery fever with concerns for upper respiratory problems. She was diag nosed with chronic obstructive pulmonary disease in the past, has history of sleep apnea and tobacco use. She has been started on Augmentin orally at home and presents for persistent fevers and respira tory compromise. CT angio of her chest and chest x-ray unremarkable. We will obtain a CT scan of ab domen and pelvis with p.o. and IV contrast and make further assessment from there. We will admit her for evaluation. Pending her CT scan of abdomen and pelvis may consider Pulmonary Medicine consultat ion for her fevers and chronic obstructive pulmonary disease findings. 2. Sleep apnea. 3. Obesity status post 09/28/2017 laparoscopic reversal Nilesh fundoplication, lysis of adhesions, R oux-en-Y gastric bypass, 150 cm Pam limb antecolic 25 mm EEA stapler checked under water, no leaks. Preoperative weight 264 pounds, BMI 48. 4. History of tobacco abuse. Await CAT scan.
--- NOTE | 2017-10-10 09:36 | CT ---
ABDOMEN CT WITH CONTRAST PELVIC CT WITH CONTRAST: Date: 10/10/17 HISTORY: Abdominal pain. COMPARISON: 10/05/17. TECHNIQUE: Abdomen and pelvic CT are performed with IV and oral contrast. Coronal reformatted images are submitt ed for interpretation. FINDINGS: ABDOMEN CT: Small bibasilar atelectasis. Heart size normal. No pericardial effusion. The descending thoracic aort a and abdominal aorta have a normal caliber. No periaortic fat stranding. No gastrohepatic, retrocrural, or periportal lymphadenopathy. Gallbladder is unremarkable. Intra and extrahepatic portal vein is patent. Hypodensity in the posterior segment of the right hepatic lobe measuring 9.0 cm. Evaluation is limite d due to size. Liver, spleen, and pancreas are unremarkable. Symmetric enhancement of the kidneys. Bi laterally, no obstructive uropathy. There is evidence of previous bariatric surgical change with suture lines near the stomach and involv ing jejunal loops. There is mild stranding of the fat at the level of the surgery. Findings are nonsp ecific. There is mild mucosal thickening in this region. Slightly prominent proximal small bowel loop s are noted. Contrast does pass beyond the small bowel anastomosis. A partial obstructive process is favored. There is nonspecific stranding of the left abdominal mesentery. No mass, lymphadenopathy, or free air. Small amount of fluid in both paracolic gutters. PELVIC CT: Surgically absent uterus. There is fluid in the left and right hemipelvis. Fluid has a slightly locul ated appearance. No evidence of air. Contrast in the urinary bladder. No lytic or blastic lesion in t he osseous structures. There is persistent stranding of the ventral subcutaneous fat with small pockets of subcutaneous emph ysema, nonspecific. IMPRESSION: Bariatric surgical change with sutures at the level of the proximal stomach and involving small bowel loops in left hemiabdomen. Small bowel loops proximal to the anastomosis are slightly dilated and fi lled with contrast and fluid. Contrast does pass beyond the anastomosis. There is evidence of a parti al small bowel obstruction. Surgical consultation and continued surveillance is recommended. POS: [facility]
--- NOTE | 2017-10-10 09:41 | CT ---
PRELIMINARY REPORT/[facility]/EMERGENCY AFTER HOURS PROCEDURE: EXAM: CT Angiography Chest With Intravenous Contrast CLINICAL HISTORY: 57 years old, female; Signs and symptoms and abnormal findings; Abnormal diagnostic tests; Elevated d -dimer; Shortness of breath; Patient HX: 57f presents with shortness of breath, fever, and bodyaches. Patient reports 2 days of fever, tmax 102. She had gastric bypass earlier this month and h ad an anastomotic revision 7 days later. Her surgeon started her on amoxil on tuesday. She denies in creased abdominal pain. Denies dysuria. Reports cough but it is nonproductive. D-dimer 5.57 TECHNIQUE: Axial computed tomographic angiography images of the chest with intravenous contrast using pulmonary embolism protocol. MIP reconstructed images were created and reviewed. CONTRAST: 70 mL of ISOVUE 370 administered intravenously. COMPARISON: No relevant prior studies available. FINDINGS: No definite filling defect to suggest the diagnosis of acute pulmonary embolus. No evidence of thoracic aortic dissection or focal aneurysm. No significant hilar or mediastinal lymphadenopathy. No evidence for pneumomediastinum or pneumothorax. Right lung: Small calcified granuloma in the anterior right lower lobe. No other significant parenchymal opacity or mass. Minimal right pleural fluid versus pleural thickening. Left lung: No significant parenchymal opacity or mass. No pleural fluid. Evidence for prior gastric bypass surgery. Images that include the upper abdomen otherwise appear essentially unremarkable. IMPRESSION: No evidence of acute pulmonary embolus. No evidence of thoracic aortic dissection or focal aneurysm. Essentially clear lungs. Minimal right pleural fluid versus pleural thickening. Other findings discussed above. Thank you for allowing us to participate in the care of your patient. Dictated and Authenticated by: Barney Johnson MD 10/10/2017 6:47 AM Central Time ([place] & [place]) FINAL REPORT CT ARTERIOGRAM CHEST WITH IV CONTRAST: DATE: 10/10/17. TIME: 0605 hours. HISTORY: Chest pain. Dyspnea. COMPARISON: 06/02/17. FINDINGS: The findings agree with the preliminary report by Dr. Johnson from [facility]. There is no CT e vidence of pulmonary embolus. POS: [facility]
[2017-10-10] MEDS: Ketorolac Tromethamine 30 MG/ML VIAL IVP SCH ×3 (11:28→23:54)
[2017-10-10] MEDS: Enoxaparin Sodium 40 MG/0.4 ML SYRINGE SC SCH (11:29)
[2017-10-10] MEDS ORDERED: Hydrocodone-Acetamin 15 ML UDCUP PO PRN (11:29)
[2017-10-10] MEDS: Famotidine/PF 20 mg/2ml Vial SLOW IVP SCH ×2 (11:29→21:19)
[2017-10-10] MEDS: Potassium Chloride 20 MEQ in Lactated Ringer's 1,000 ML IV SCH ×3 (11:30→21:28)
[2017-10-10] MEDS: Acetaminophen 1,000 MG in Premix Bag 1 BAG IVPB SCH ×3 (11:30→23:54)
[2017-10-10] MEDS: Piperacillin/Tazobactam 4.5 GM in Sodium Chloride 0.9% 100 ML IVPB SCH ×2 (11:30→18:37)
[2017-10-10] MEDS ORDERED: ISOVUE-370 76%-LOCM 1 ML ONE ×2 (17:00)
[2017-10-10] MEDS ORDERED: Iopamidol 370 76% 50 ML VIAL FS ONE (17:00)
[2017-10-10 18:23] VITALS: BMI 42.9
--- NOTE | 2017-10-10 19:15 | CON ---
DATE OF CONSULTATION: 10/10/2017 HISTORY OF PRESENT ILLNESS: Ms. Bean is a 57-year-old female. She recently underwent laparoscopic reversal of Nilesh fundoplication and gastric bypass. She did well for 4 to [address] Collazo's note and then came into the hospital with abdo shilpa discomfort and film suggesting perhaps bowel obstruction. On 10/05/2017, she had a laparoscopy performed revealing a pseudo-obstruction. She underwent a jejun ojejunostomy to resolve this. She went home on the . She became febrile on the and had a cough. She subsequently has bee n admitted and I was consulted. PAST MEDICAL HISTORY: Remarkable for knee replacement in 2014, hysterectomy, bilateral salpingo-ooph orectomy, right shoulder replacement, carpal tunnel surgery, laparoscopic Nilesh fundoplication in 12 11, and right shoulder replacement in 2012. She has a history of hypertension, insomnia, sleep apnea, but she quickly admits that she refuses to wear a CPAP because she is claustrophobic even with nasal pillows. She says she is feeling much better and her "fever has broken". PHYSICAL EXAMINATION: GENERAL: She is in no distress. She is actually smiling and laughing when I walked in the room and does not look ill at all. VITAL SIGNS: She is afebrile, day-to-day heart rates have been in the 90s, respiratory rate is in th e teens, oximetry is 78, blood pressure 145/65. HEAD AND NECK: Unremarkable. LUNGS: Clear. HEART: Regular rhythm. S1 and S2 are normal. ABDOMEN: Soft, slightly distended, nontender. EXTREMITIES: Without asymmetry. IMAGING: CT of her chest showed clear lung frances. IMPRESSION: ? viral illness. Her respiratory symptoms are resolving. I do not feel that broad antimicrobial coverage necessarily indicated at this point. I would be happ y to follow along with the other physicians caring for her. If Dr. Collazo feels that she needs Zosyn for gastrointestinal issues then we should continue this.
[2017-10-10] MEDS ORDERED: Zolpidem Tartrate 5 MG TAB PO PRN (20:56)
[2017-10-11] MEDS: Piperacillin/Tazobactam 4.5 GM in Sodium Chloride 0.9% 100 ML IVPB SCH ×2 (00:57→06:05)
[2017-10-11] MEDS: Ketorolac Tromethamine 30 MG/ML VIAL IVP SCH ×2 (05:08→11:46)
[2017-10-11] MEDS: Acetaminophen 1,000 MG in Premix Bag 1 BAG IVPB SCH ×2 (05:10→11:46)
[2017-10-11 05:31] LABS: #Eosinphils 0.2 thou/uL (0.0-0.7); #Lymphocytes 1.3 thou/uL (1.20-3.40); #Monocytes 0.7 thou/uL (0.11-0.59); #Neutrophils 3.8 thou/uL (1.40-6.50); %Basophils 0.1 % (0.0-1.0); %Eosinophils 3.1 % (0.0-10.0); %Lymphocytes 21.4 % (21.0-51.0); Anion Gap 11 mmol/L (10-20); BUN (Urea Nitrogen) 5 mg/dL (9.8-20.1); Calc. Creatinine Clearance 166 mL/min (70-130); Calcium 8.5 mg/dL (7.8-10.44); Carbon Dioxide 26 mmol/L (22-29); Chloride 106 mmol/L (98-107); Estimated GFR-MDRD Greater than 90; Hematocrit 31.5 % (36.0-47.0); Mean Platelet Volume 7.3 fL (7.4-10.4); Red Blood Cell (RBC) Count 3.36 mill/uL (4.20-5.40); White Blood Cell (WBC) Count 5.9 thou/uL (4.8-10.8)
[2017-10-11] MEDS: Potassium Chloride 20 MEQ in Lactated Ringer's 1,000 ML IV SCH (08:33)
[2017-10-11] MEDS: Famotidine/PF 20 mg/2ml Vial SLOW IVP SCH (08:36)
[2017-10-11] MEDS: Enoxaparin Sodium 40 MG/0.4 ML SYRINGE SC SCH (08:36)
[2017-10-11] MEDS ORDERED: Polyethylene Glycol 3350 17 GM Packet PO SCH (09:00)
--- NOTE | 2017-10-11 10:05 | PRG ---
DATE OF SERVICE: 10/11/2017 SUBJECTIVE: She is feeling great. She has no more cough. OBJECTIVE: VITAL SIGNS: She is afebrile, heart rate is 100, respiratory rate is 18, oximetry is 95, and blood p ressure 143/95. LUNGS: Clear. IMPRESSION: 1. Bronchitis, probably viral mediated. 2. Recent weight loss surgery. 3. Sleep apnea, noncompliant with CPAP. 4. Tobacco use. She says she will abstain after discharge. PLAN: I believe she is stable for discharge. I do not feel she needs to go home with antibiotics.
[2017-10-11 11:48] VITALS: BP 136/88; TEMP 99.2
--- NOTE | 2017-10-11 11:58 | PRG ---
DATE OF SERVICE: 10/11/2017 SUBJECTIVE: Ms. Bean is doing well today. PHYSICAL EXAMINATION: VITAL SIGNS: Temperature 98.2 degrees, heart rate 94-100, respiration rate 18. LUNGS: Clear to auscultation. CARDIAC: Regular rate and rhythm without murmur or gallop. ABDOMEN: Soft. She is tolerating her bariatric full liquids without problems. She has not had any nausea or vomitin g. She has not had any fever. Her diarrhea has resolved. C. diff studies, antigen positive, toxin pending. Stool positive for Campylobacter antigen. Shigella and E. coli negative. Urine cultures a re negative. Group A strep throat swab negative. Influenza screen negative. White count 5, hemoglo bin 10.3. Basic metabolic profile normal. ASSESSMENT AND PLAN: The patient has a mild cough. Her sore throat is resolved and improved. CAT s can of abdomen and pelvis with oral contrast was unremarkable. Currently, the patient should be able to be discharged home later today. I suspect she had a viral illness as a cause for fever, sore thr oat, and cough. Her chest x-ray did not show any radiological infiltrates. Dr. Dowling has seen her a nd agrees that antibiotics can be discontinued and I have discontinued these. I expect she will be d ischarged home later today if she continues to do well.
[2017-10-11] MEDS ORDERED: Potassium Chloride 20 MEQ TAB PO SCH (13:15)
--- NOTE | 2017-10-11 13:24 | DIS ---
DATE OF ADMISSION: 10/10/2017 DATE OF DISCHARGE: 10/11/2017 DISCHARGE DIAGNOSES: 1. Campylobacter diarrhea, sent home with Cipro for seven days. 2. Hypokalemia secondary to above. 3. Bariatric status. 4. Gastroenteritis. 5. Morbid obesity. 6. Pre-chronic obstructive pulmonary disease. 7. History of tobacco abuse. Tobacco cessation for several weeks now. 8. Depression. PROCEDURES THIS HOSPITALIZATION: CT angio negative for pulmonary embolus. CT scan of abdomen with p .o. without IV contrast (recently CT angio) normal, no acute intraabdominal problems. Consultation w [facility] Dr. Kike Dowling agreed with gastritis diarrhea, and Zosyn discontinued. Chest x-ray normal. HISTORY: A 57-year-old female undergoing recent laparoscopic reversal of Nilesh fundoplication and g astric bypass on 09/28/2017, postoperatively doing well initially, but developed a Pam limb obstruct ion, requiring repeat laparoscopy and a jejunojejunostomy on 10/05/2017, discharge home in the next d ay. Several days after being home, she developed fever. Over the weekend, I talked with the patient and her daughter. The patient was thought to have a COPD exacerbation as she is having a cough, sor e throat and fever to 101 degrees, although she is eating well, abdominal pain was not increased and she was having normal bowel function and no nausea or vomiting, although loose stools. We talked ove r the weekend and Augmentin was started, elixir and she seemed to improve, but on Tuesday night, she p resented to the emergency room and underwent evaluation, CT angio negative for pulmonary embolism. H er CBC and basic metabolic profile were normal. Influenza screen and flu screen negative. Strep sc reen of throat negative. Patient was admitted and observed and did not have another fever. White co unt remained normal. CAT scan of abdomen was normal, postoperative laparoscopic procedures as descri bed. She continued to tolerate her diet without problems. Abdomen was soft and nontender. Pulmonar y medicine saw her and by this time stool cultures returned and were tested for C. diff, which reveal ed antigen positive and toxin detected by PCR. Plan at this time is to treat her for C. diff colitis with vancomycin p.o. and do not give her the Cipro and follow up in my office in 4 weeks.
[2017-10-11] MEDS ORDERED: Ciprofloxacin 500 MG TAB PO SCH (20:00)
[2017-10-12] MEDS ORDERED: Vancomycin HCl 25 MG/ML Oral PO SCH (09:00)
--- NOTE | 2017-10-22 11:18 | EKG ---
Test Reason : SOB Blood Pressure : / mmHG Vent. Rate : 100 BPM Atrial Rate : 100 BPM P-R Int : 134 ms QRS Dur : 088 ms QT Int : 354 ms P-R-T Axes : 078 008 017 degrees QTc Int : 456 ms Normal sinus rhythm Normal ECG Confirmed by GRIFFIN TINAJERO M.D. ([id number]), development editor KELLEY RUBIO ([id number] on 10/22/2017 11:18:21 AM Referred By: Confirmed By:GRIFFIN TINAJERO M.D.
== END 2017-10-11 15:45 | disposition home or self-care (01) | DRG 372 ==
LOC: ERS 00:58 → SURG A 09:23
PROVIDERS: ADMIT Specialist; ATTEND Specialist
DX: A04.5 Campylobacter enteritis (principal); Z68.41 Body mass index [BMI] 40.0-44.9, adult; A04.72 Enterocolitis due to Clostridium difficile, not specified as recurrent; E87.6 Hypokalemia; E66.01 Morbid (severe) obesity due to excess calories; K52.9 Noninfective gastroenteritis and colitis, unspecified; Z87.891 Personal history of nicotine dependence; F32.9 Major depressive disorder, single episode, unspecified; G47.30 Sleep apnea, unspecified; E78.5 Hyperlipidemia, unspecified; J44.9 Chronic obstructive pulmonary disease, unspecified
CPT/HCPCS: 36415; 71010; 71275; 74177; 80048; 80053; 81003; 81015; 82553; 83605; 84484; 85025; 85379; 85610; 85730; 87045; 87046; 87081; 87086; 87324; 87430; 87449; 87493; 87899; 93005; 94640; 96361; 96374; 99406; C1751; J0131; J1650; J1885; J2270; J2543; J3480; J7050; J7120; J7620; S0028

== ENCOUNTER 2019-04-11 19:12 | Emergency (ER) | payer BC ==
[2019-04-11] MEDS ORDERED: Ketorolac Tromethamine 30 MG/ML VIAL ONE (20:37)
[2019-04-11] MEDS ORDERED: HYDROcodone/Acetaminophen 5/325 mg Tablet ONE (21:43)
--- NOTE | 2019-04-12 11:51 | RAD ---
LEFT SHOULDER THREE VIEWS: HISTORY: Pain. COMPARISON: None. FINDINGS: There is reverse left total shoulder arthroplasty. No displaced left-sided rib fracture. There is some periosteal new bone formation along the distal humeral stem. There appears to be a body within the subacromial space. IMPRESSION: No acute fracture or malalignment. POS: CET
== END 2019-04-12 10:33 | disposition home or self-care (01) ==
LOC: ERS 19:12
DX: S40.022A Contusion of left upper arm, initial encounter (principal); E78.5 Hyperlipidemia, unspecified; I10 Essential (primary) hypertension; F31.9 Bipolar disorder, unspecified; F17.210 Nicotine dependence, cigarettes, uncomplicated; Z79.899 Other long term (current) drug therapy; W18.30XA Fall on same level, unspecified, initial encounter
CPT/HCPCS: 99283; J1885

== ENCOUNTER 2020-01-02 09:37 | Day surgery (SDC) | payer OTHER ==
[2020-01-01 12:33] VITALS: BMI 26.9
[2020-01-02] MEDS ORDERED: PHENYLEPHRINE-NS 100 MCG/ML 10 ML SYRINGE ONE (09:57)
[2020-01-02] MEDS ORDERED: Dexamethasone 20 MG/5 ML VIAL ONE (09:57)
[2020-01-02] MEDS ORDERED: Rocuronium Bromide 10 MG/ML (10ML VIAL) ONE (09:57)
[2020-01-02] MEDS ORDERED: PROPOFOL 200 MG/20 ML VIAL ONE (09:57)
[2020-01-02] MEDS ORDERED: Ondansetron PF 4 MG/2 ML Vial ONE ×3 (09:57→12:38)
[2020-01-02] MEDS ORDERED: Glycopyrrolate 0.2 MG/ML 5 ML SYRINGE ONE (09:57)
[2020-01-02] MEDS ORDERED: Lidocaine 1% PF 5 ML VIAL ONE (09:57)
[2020-01-02] MEDS ORDERED: Levofloxacin 500 mg/D5W 100 ml Premix Bag ONE (10:02)
[2020-01-02] MEDS ORDERED: Acetaminophen 500 MG TAB ONE ×2 (10:02→14:00)
[2020-01-02] MEDS ORDERED: Ketorolac Tromethamine 30 MG/ML VIAL ONE (10:02)
[2020-01-02] MEDS ORDERED: Lidocaine 1% w/Epinephrine 1:100K 20 ML VIAL ONE (10:04)
[2020-01-02] MEDS ORDERED: Bupivacaine PF 0.5% 30 ML VIAL ONE (10:04)
[2020-01-02] MEDS ORDERED: HYDROmorphone 0.5 MG/0.5 ML SYRINGE ONE (10:14)
[2020-01-02] MEDS ORDERED: Fentanyl 100 MCG/2 ML VIAL ONE (10:14)
[2020-01-02] MEDS ORDERED: SUGAMMADEX SODIUM 200 MG/2 ML VIAL ONE (10:14)
[2020-01-02 10:34] LABS: #Basophils 0.1 thou/uL (0.0-0.2); #Eosinphils 0.5 thou/uL (0.0-0.7); #Lymphocytes 2.4 thou/uL (1.20-3.40); #Monocytes 0.6 thou/uL (0.11-0.59); #Neutrophils 3.3 thou/uL (1.40-6.50); %Eosinophils 6.8 % (0.0-10.0); %Lymphocytes 35.3 % (21.0-51.0); %Monocytes 8.4 % (0.0-10.0); %Neutrophils 48.6 % (42.0-75.0); Mean Corpuscular HGB CONC 34.2 g/dL (32.0-36.0); Mean Corpuscular Hemoglobin 32.8 pg (27.0-31.0); Mean Corpuscular Volume 95.9 fL (78.0-98.0); Mean Platelet Volume 7.7 fL (7.4-10.4); Platelet Count 228 thou/uL (130-400); RBC Distribution Width 11.4 % (11.5-14.5); Red Blood Cell (RBC) Count 3.98 mill/uL (4.20-5.40); White Blood Cell (WBC) Count 6.8 thou/uL (4.8-10.8)
[2020-01-02 10:57] LABS: ALT (SGPT) 13 U/L (8-55); AST (SGOT) 20 U/L (5-34); Alkaline Phosphatase 112 U/L (40-110); Anion Gap 14 mmol/L (10-20); BUN (Urea Nitrogen) 17 mg/dL (9.8-20.1); Bilirubin, Total 0.3 mg/dL (0.2-1.2); Calc. Creatinine Clearance 74 mL/min (70-130); Calcium 9.4 mg/dL (7.8-10.44); Carbon Dioxide 27 mmol/L (22-29); Chloride 103 mmol/L (98-107); Estimated GFR-MDRD 68; Globulin 2.9 g/dL (2.4-3.5); Glucose 87 mg/dL (70-105); Potassium 4.6 mmol/L (3.5-5.1); Protein, Total 6.9 g/dL (6.0-8.3); Sodium 139 mmol/L (136-145)
[2020-01-02] MEDS ORDERED: hydrALAZINE 20 MG/ML VIAL ONE (11:11)
[2020-01-02] MEDS ORDERED: Promethazine HCl 25 MG/ML VIAL ONE (12:23)
--- NOTE | 2020-01-02 14:03 | OP ---
DATE OF PROCEDURE: 01/02/2020 PREOPERATIVE DIAGNOSES: Bariatric status, sleeve gastrectomy, more than 100 pound weight loss, cholecystitis, cholelithiasis, symptomatic. PROCEDURE PERFORMED: Laparoscopic video cholecystectomy. ANESTHESIA: General, local 0.5% Marcaine 30 mL, 1% Xylocaine with epinephrine 20 mL. FINDINGS: Normal-appearing liver, distended gallbladder, very large sludge and small stones. DESCRIPTION OF PROCEDURE: The patient taken to the operating room, where under general anesthesia, abdomen was prepared with ChloraPrep and draped in routine fashion. Local anesthetic was infiltrated in the skin and subcutaneous tissue about all port sites. An infraumbilical incision was made, pneumoperitoneum to 15 mmHg obtained with a Veress needle, replaced with a 5 port, laparoscope inserted. Right lateral subcostal incision was made at midclavicular entrance line, and a 5 port was placed. A right subxiphoid incision was made and 11 port placed. Fundus of the gallbladder was grasped at the cephalad. Liver appeared to be normal. Infundibulum grasped, reflected laterally. Cystic artery and duct dissected free. Critical view obtained. Cystic artery and duct double clipped proximally, divided, and gallbladder dissected free from liver bed obtaining good hemostasis prior to division of the final peritoneal attachments. Gallbladder and contents removed, submitted to Pathology. Good hemostasis assured with cautery. Irrigant and pneumoperitoneum evacuated. Good hemostasis ensured. All skin incisions were approximated with subdermal 4-0 Monocryl and [place] glue. Job ID: [id number]
== END 2020-01-02 15:19 | disposition home or self-care (01) ==
LOC: SDC 09:37
PROVIDERS: ATTEND Specialist
PROC: 0FT44ZZ Resection of Gallbladder, Percutaneous Endoscopic Approach (ICD-10-PCS; principal; 2020-01-02)
DX: K80.10 Calculus of gallbladder with chronic cholecystitis without obstruction (principal); K82.8 Other specified diseases of gallbladder; I10 Essential (primary) hypertension; G47.00 Insomnia, unspecified; F41.8 Other specified anxiety disorders; G47.30 Sleep apnea, unspecified; F17.210 Nicotine dependence, cigarettes, uncomplicated; Z79.899 Other long term (current) drug therapy; Z88.8 Allergy status to other drugs, medicaments and biological substances; Z98.84 Bariatric surgery status; Z99.89 Dependence on other enabling machines and devices; Z98.890 Other specified postprocedural states
CPT/HCPCS: 80053; 85025; 88304; 93005; 93010; J0360; J1100; J1170; J1885; J1956; J2001; J2405; J2550; J2704; J3010; S0020